=== PATIENT | male | born 1985 | race Caucasian/White ===

== ENCOUNTER 2025-07-21 14:58 | Emergency (ER) | payer SELFPAY ==
[2025-07-21 15:05] VITALS: BP 132/104
--- NOTE | 2025-07-21 16:14 | ED.GENMED ---
History of Present Illness
General
Chief Complaint: Crisis Evaluation
Source: patient
Time Seen by Provider: 07/21/25 15:59
History of Present Illness
History of Present Illness:
40-year-old male presents to the emergency room requesting an evaluation by crisis. Patient had an appointment with a therapist earlier today but states it was canceled because the therapist was sick. Patient has a history of autism, anxiety,
depression and borderline personality. He feels no one is treating him fairly or understands his disabilities. He denies suicidal ideations. He does admit to being angry when people treat him in a way that he feels is not caring but denies any
feelings of hurting someone else or homicide etc. He is prescribed medications and states he is taking them. He denies any medical complaints.
Phy Exam
Physical Exam
Physical Exam:
General: Awake, Alert, Oriented X3. No acute distress. Conversant, somewhat animated at times but re-directable
Vitals: unremarkable
Head: Atraumatic
Eyes: Pupils equal, EOMI
Throat: Airway intact, no exudates
Neck: Trachea midline
Lungs: Clear and equal b/l
Heart: Regular rate, no murmurs
Neuro: Nonfocal
Skin: Warm, dry, no rash
Extremities: pulses equal b/l, no edema
Course
Orders/Labs/Results
Orders:
Orders
07/21/25 16:00
Crisis Consult Urgent
Reason for Consult: anxiety/depression
Vital Signs
Initial and Last Documented VS:
Initial Vital Signs
Temp Pulse Resp BP Pulse Ox
98.4 F 117 20 132/104 98
07/21/25 15:05 07/21/25 15:05 07/21/25 15:05 07/21/25 15:05 07/21/25 15:05
Last Documented Vital Signs
Temp Pulse Resp BP Pulse Ox
98.4 F 117 20 132/104 98
07/21/25 15:05 07/21/25 15:05 07/21/25 15:05 07/21/25 15:05 07/21/25 16:17
MDM/Problems Addressed
MDM/Problems Addressed:
Patient evaluated by crisis. No acute psychiatric requirements at this time. They will arrange for him to have a therapy session. Stable for discharge home
*Pulse Oximetry
SaO2: 98
Oxygen Mode of Delivery: Room air
Patient hypoxic: no
*Critical Care Note
Total Time (30-74mins, 75-104mins- exclusive of procedures): Not Applicable
ED Attending Note
-
Portions of this chart may have been created with voice recognition software.� Occasional wrong word or��sound alike� substitutions may have occurred due to the inherent limitations of voice recognition software.
Discharge Plan
Departure
Patient Disposition: Home (Routine Discharge)
Date of Disposition: 07/21/25
Time of Disposition: 16:41
Patient with high blood pressure during this ER visit?: Yes
Condition: Good
Discharge Problem:
Depression
Instructions: Depression, Adult (DC)
Prescriptions:
No Action
clomipramine 75 mg Capsule
150 mg PO HS
prazosin 1 mg Capsule
1 mg PO HS
melatonin 3 mg Tablet
3 mg PO HS
lamotrigine [Lamictal] 25 mg Tablet
25 mg PO BID
diazepam [Valium] 10 mg Tablet
10 mg PO HS
Vraylar 6 mg Capsule
6 mg PO DAILY
pantoprazole [Protonix] 40 mg Tablet,Delayed Release (Dr/Ec)
40 mg PO DAILY
dicyclomine 10 mg capsule
10 mg PO Q6HPRN PRN (Reason: abd pains)
Linzess 145 mcg Capsule
145 mcg PO DAILY
Referrals:
NONE,* [Family Provider, Internal Medicine]
Activity Restrictions/Additional Instructions:
Continue taking your current medications. Follow-up as recommended
Interventions
Interventions:
*Risk Screen - Suicide Last Done: 07/21/25 15:00
*General Assessment Last Done: 07/21/25 15:05
*Neglect/Abuse Screening Last Done: 07/21/25 15:05
*ED- Fall Risk Assessment Last Done: 07/21/25 15:29
*ED COVID-19 Vaccine History Last Done: 07/21/25 15:29
*ED Influenza Vaccine History Last Done: 07/21/25 15:29
*Nursing Disposition Last Done: 07/21/25 16:46
ED-Psychological Assessment Last Done: 07/21/25 15:29
Discharge Date and Time
Discharge Date/Time: 07/21/25 16:46
Print Language: POLISH
== END 2025-07-21 16:46 | disposition home or self-care (01) ==
LOC: EMR 14:58
PROVIDERS: EMERGENCY PHYSICIAN Emergency Medicine
DX: F32.A Depression, unspecified (principal); F41.9 Anxiety disorder, unspecified; F60.3 Borderline personality disorder; F84.0 Autistic disorder
CPT/HCPCS: 99283